=== PATIENT | female | born 1975 | race Caucasian/White ===

== ENCOUNTER 2024-01-25 08:00 | Outpatient (RCR) | payer MEDICAID, SELFPAY ==
--- NOTE | 2024-01-18 08:43 | PT.OIERPT ---
PT OP Initial Eval Patient Information Outpatient Physical Therapy Treatment Date: 01/18/24 Visit Reasons: PAIN IN LEFT KNEE Medical Diagnosis: M25.562 Treatment Dx #1: L knee pain Start of Care: 01/18/24 Date of Onset: 2 yrs ago Smoking Status Smoking Status: Current every day smoker Cessation Counseling Provided: LOWELL was advised that quitting smoking is the single most important factor to protect the health of themselves and their family. Discussed the benefits of quitting smoking with patient. Encouraged patient to quit smoking and provided Cessation assistance materials and resources. Tobacco Use: Cigarette Years smoked: 24 Are you interested in quitting?: Yes Would you like additional Smoking Cessation Counseling?: Yes Initial Assessment Subjective: Pt is 48 yr old female who c/o L knee pain x2 yrs. Pt can walk for about 30 minutes and then sits to rest. Increased pain with squatting and stairs and she uses a cane for prolonged walking. PMH: anemia, pancreatitis, carpal tunnel sx, smoker Imaging: Xray in EMR Mild narrowing of the joint spaces mostly the medial joint space. Pt goal: less knee pain Objective: L knee AROM: ? Flexion: full ? Extension: full ? SLR: 75 deg ? Strength: L quads 3+/5 limited by patella compression pain, hamstrings 4-/5 ? Special testing: ? Yariel's: negative Varus/valgus: negative ? Patella compression: positive TTP: moderate of lateral patella border and patella tendon Assessment: Pt presents with L knee patella compression sensitivity and TTP. Pt may benefit from skilled therapy and has fair rehab potential to meet goals. Short Term and Retirement Goals 1. Independent with HEP ? 2. Improved quad strength to 4/5 ? 3. Pt will squat to 50% depth x10 without increase in knee pain ? 4. Pt will ambulate x45' <=3/10 L knee pain Treatment Plan 1. Manual therapy ? 2. Therex ? 3. Modalities as indicated, MHP, ice, estim Frequency and Duration: 1-2x a week for 8 visits Certification Dates: 01/18/24 to 04/17/24 Procedure Charges OP PT Eval Mod Complex 30 minutes: Yes
--- NOTE | 2024-01-25 17:32 | PT.ODAYNRPT ---
PT Outpatient Daily Note OP Daily Note Outpatient Physical Therapy Treatment Date: 01/25/24 Visit Reasons: PAIN IN LEFT KNEE Subjective: Same as time of evaluation Objective: See F/S for therex MT: K-tape patella borders x5' MHP x5' Assessment: Ssx consistent with patellofemoral pain Plan: Continue per POC Length of Time (minutes) of Treatment: 30 Minutes Procedure Charges Therapeutic Exercise 30 minutes: Yes
== END 2024-02-05 23:59 | disposition home or self-care (01) ==
LOC: CPTX 08:00
PROVIDERS: PCP Physician Assistant; Referring Provider Physician Assistant; Visit Provider Physician Assistant
DX: M25.562 Pain in left knee (principal)
CPT/HCPCS: 97110; 97162

== ENCOUNTER → 2024-03-03 | Outpatient (CLI) | payer MEDICAID, SELFPAY ==
--- NOTE | 2024-03-03 08:00 | XR_ITS ---
Examination: Screening digital mammography, bilateral Computer aided detection 3-D breast Tomosynthesis, bilateral Date and time of exam: March 03, 2024 at 0818 hours Compared to mammograms dating to 12/02/2017 Indication: Screening Technique: Nonmagnified MLO, CC views of the breasts to been obtained, reconstructed from 3-D Tomosynthesis images. R2 computer aided detection program utilized for evaluation of suspicious masses and/or abnormal calcifications. 3-D Tomosynthesis images obtained. Findings: The breasts are heterogeneously dense, which may obscure small masses Benign calcifications No interval suspicious masses Impression: BI-RADS category II: Benign Findings. Recommend 1 year follow-up mammogram.
== END | disposition home or self-care (01) ==
LOC: CDIM 08:02
PROVIDERS: Referring Provider Physician Assistant; Visit Provider Physician Assistant
DX: Z12.31 Encounter for screening mammogram for malignant neoplasm of breast (principal); R92.323 Mammographic fibroglandular density, bilateral breasts; R92.1 Mammographic calcification found on diagnostic imaging of breast
CPT/HCPCS: 77063; 77067

== ENCOUNTER 2024-03-07 08:00 | Outpatient (RCR) | payer MEDICAID, SELFPAY ==
--- NOTE | 2024-02-16 08:50 | PT.ODAYNRPT ---
PT Outpatient Daily Note OP Daily Note Outpatient Physical Therapy Treatment Date: 02/16/24 Visit Reasons: Left knee pain Subjective: No changes to report, pt c/o L knee pain. Objective: Please see flow sheet for ther ex list. Assessment: Pt presents with poor activity tolerance due to pain response. Plan: Continue with pOC. Length of Time (minutes) of Treatment: 30 Minutes Procedure Charges Therapeutic Exercise 30 minutes: Yes
--- NOTE | 2024-02-22 08:11 | PT.ODAYNRPT ---
PT Outpatient Daily Note OP Daily Note Outpatient Physical Therapy Treatment Date: 02/22/24 Visit Reasons: Left knee pain Subjective: Pt reports continued knee pain on L LE. Objective: Please see flow sheet for ther ex list. Assessment: Pt has poor activity tolerance due to pain response. Plan: Continue with POC. Length of Time (minutes) of Treatment: 30 Minutes Procedure Charges Therapeutic Exercise 30 minutes: Yes
--- NOTE | 2024-03-07 08:38 | PT.ODAYNRPT ---
PT Outpatient Daily Note OP Daily Note Outpatient Physical Therapy Treatment Date: 03/07/24 Visit Reasons: Left knee pain Subjective: Pt reports L knee is really hurting today. Objective: Please see flow sheet for ther ex list. Assessment: Pt presents in clinic with poor activity tolerance and poor performance due to high pain in L knee. Pt ambulating with L knee locked in extension due to pain. Plan: Assess response to treatment. Length of Time (minutes) of Treatment: 30 Minutes Procedure Charges Therapeutic Exercise 30 minutes: Yes
== END 2024-03-07 23:59 | disposition home or self-care (01) ==
LOC: CPTX 08:00
PROVIDERS: PCP Physician Assistant; Referring Provider Physician Assistant; Visit Provider Physician Assistant
DX: M25.562 Pain in left knee (principal)
CPT/HCPCS: 97110

== ENCOUNTER 2024-03-14 08:04 | Outpatient (RCR) | payer MEDICAID, SELFPAY ==
--- NOTE | 2024-03-14 09:36 | PT.ODS1RPT ---
PT OP Progress/Discharge Note Date of Service: 03/14/24 Progress Note/DC Note Progress Note/Discharge Note: DC Note Patient Information Visit Reasons: Left knee pain Service Continue Service or Discharge: Discharge Discharge Date: 03/14/24 Status Subjective: The knees hurt the same as before, no change since starting therapy Objective: Knee strength: R: 4-/5, L: 3+/5 HS: 4-/5 B ROM: full into flexion and extension Patella compression: positive Gait: antalgic Assessment: Pt has attended the eval and 07/13 Rx sessions with limited progress with therapy goals due to continued B knee pain consistent with patella compression sensitivity. Pt isn't making progress with goals and may benefit from orthopedic evaluation. Thank you for your referrals. Plan: D/C Procedure Charges Therapeutic Exercise 30 minutes: Yes
== END 2024-04-07 23:59 | disposition home or self-care (01) ==
LOC: CPTX 08:04
PROVIDERS: PCP Physician Assistant; Referring Provider Physician Assistant; Visit Provider Physician Assistant
DX: M25.562 Pain in left knee (principal)
CPT/HCPCS: 97110

== ENCOUNTER 2024-06-20 08:19 | Outpatient (RCR) | payer MEDICAID, SELFPAY ==
--- NOTE | 2024-06-20 08:43 | PTNOTE_ITS ---
PT OP Initial Eval Patient Information Outpatient Physical Therapy Treatment Date: 06/20/24 Visit Reasons: NECK PAIN Medical Diagnosis: Neck Pain Treatment Dx #1: Neck Pain Start of Care: 06/20/24 Smoking Status Smoking Status: Current every day smoker Cessation Counseling Provided: LOWELL was advised that quitting smoking is the single most important factor to protect the health of themselves and their family. Discussed the benefits of quitting smoking with patient. Encouraged patient to quit smoking and provided Cessation assistance materials and resources. Tobacco Use: Cigarette Years smoked: 10 Are you interested in quitting?: No Would you like additional Smoking Cessation Counseling?: No Initial Assessment Subjective: Pt is a 49 y/o female reports of neck pain (08/15) with right side spasm ~ 2 months ago. Pt denies of injury or trauma to the neck. Pt has limitation with sleeping, standing, sitting, chores, self care, and performing recreational activities Objective: C/S AROM: all motions are WFL with pain in all planes BUE AROM: all motions are WFL BUE MMTs: grossly 3+/5 Palpation: TTP levator scapulae and upper trape Assessment: Pt demonstrate neck pain with mobility deficits leading to difficulty with ADLs. 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 Goals 1) Increase c/s AROM WNL in 6 wks to be able to perform chores 2) Decrease neck pain to 2/10 in 6 wks to be able to perform sit and stand more than 30 mins 3) Increase BUE MMTs grossly to 4-/5 in 6 wks to be able to perform recreational activities 4) Increase thoracic core strength WFL in 6 wks to be able to perform lifting activities 5) Indep with HEP Treatment Plan 1) Manual Therapy 2) Therapeutic Activities 3) Therapeutic Exercises 4) Modalities (ice, heat, traction) Frequency and Duration: 2 x wk for 6 wks Certification Dates: 06/20/24 to 09/19/24 Procedure Charges OP PT Eval Mod Complex 30 minutes: Yes
--- NOTE | 2024-07-07 09:18 | PTNOTE_ITS ---
PT OP Progress/Discharge Note Date of Service: 07/07/24 Progress Note/DC Note Progress Note/Discharge Note: DC Note Patient Information Visit Reasons: NECK PAIN Service Discharge Date: 07/07/24 Status Assessment: Pt has been seen for initial evaluation 06/20/24. Pt no showed 06/28 and 06/30 and has not returned to therapy. At this time Pt will be d/c from care due to non- compliance per attendance policy. Pt did not meet set goals in therapy; thank you for your referrals
== END 2024-07-05 23:59 | disposition home or self-care (01) ==
LOC: CPTX 08:19
PROVIDERS: PCP Physician Assistant; Referring Provider Physician Assistant; Visit Provider Physician Assistant
DX: M54.2 Cervicalgia (principal); M62.838 Other muscle spasm; Z71.6 Tobacco abuse counseling; F17.210 Nicotine dependence, cigarettes, uncomplicated
CPT/HCPCS: 97162

== ENCOUNTER → 2024-10-20 | Outpatient (CLI) | payer MEDICAID, SELFPAY ==
--- NOTE | 2024-10-20 09:45 | XR_ITS ---
Examination: MRI of brain without intravenous contrast. MRI brain with intravenous contrast. Date and time of exam:October 20, 2024 1022 hours INDICATIONS: Seizures headache dizziness 6 months for seizure episode 4 years ago Technique: Multiple axial and sagittal images of the brain to been obtained. Siemens high-resolution 1.52 Cleo short bore scanner utilized. Sagittal sections, T1 weighted images, TR 500, TE 14, are performed. Axial sections proton-density and T2-weighted images have been obtained. Inversion recovery axial images, TR 9260, TE 111, TR 2500. Diffusion weighted images, axial sections, TR 4800, TE 128, B value 1000. Axial sections, ADC map, TR 4800, TE 128. Axial and coronal images were also obtained post 8 cc gadolinium administered intravenously. Findings:: Enlargement of the sella turcica is not present. The optic chiasm and infundibular stalk are not remarkable. There is no localized enlargement of the medulla or doris. Fourth ventricle and cerebellar tonsils appear normal in position. No subacute area of hemorrhage density is seen. Fourth ventricle is midline. Mass in the cerebellopontine angle region is not evident. 7th and 8th nerve complexes exhibit symmetry Globes are symmetrical Orbital musculature including medial lateral rectus muscles do not exhibit abnormality Increased white matter signal is evident, multiple punctate foci increased signal in the cerebral white matter Effacement of the cortical sulcal markings is not identified. Mass effect upon the ventricular system is not identified. Diffusion-weighted images demonstrate no focus of restricted diffusion Contrast images demonstrate no abnormal enhancement Impression: Demyelinating disease
== END | disposition home or self-care (01) ==
PROVIDERS: PCP Internal Medicine; Referring Provider Psychiatry & Neurology Neurology; Visit Provider Psychiatry & Neurology Neurology
DX: G37.9 Demyelinating disease of central nervous system, unspecified (principal)
CPT/HCPCS: 70553; A9577